=== PATIENT | male | born 1995 ===

== ENCOUNTER 2025-06-17 11:09 | Outpatient (CLI) | payer BC, SELFPAY | END 2025-06-17 11:10 | disposition home or self-care (01) | LOC: NFLDREF 06-19 17:36 | PROVIDERS: PCP Family Medicine; Referring Provider Family Medicine; Visit Provider Family Medicine | DX: Z00.00 Encounter for general adult medical examination without abnormal findings (principal); Z13.29 Encounter for screening for other suspected endocrine disorder; Z13.6 Encounter for screening for cardiovascular disorders | CPT/HCPCS: 80053; 80061; 84443 ==